=== PATIENT | female | born 1985 | race Caucasian/White ===

== ENCOUNTER → 2023-02-01 15:24 | Outpatient (BNVA) | payer BC, SELFPAY | PROVIDERS: Family Provider Family Medicine; PCP Family Medicine; Visit Provider Family Medicine | DX: M25.512 Pain in left shoulder (principal); F60.3 Borderline personality disorder; Z79.899 Other long term (current) drug therapy | CPT/HCPCS: 73030; 80053; 80061; 83036; 84443; 85025 ==

== ENCOUNTER 2023-10-15 14:15 | Inpatient (IN) | payer OTHER, SELFPAY ==
[2023-10-15] VITALS (77 sets, daily range): BP systolic 108–152; BP diastolic 65–93; PULSE 45–70; RESP 14–25; TEMP 36.8; O2SAT 95–100; BMI 31.3
--- NOTE | 2023-10-15 14:19 | ECG_ITS ---
[facility] Test Date: 2023-10-15 Pat Name: Cecile Youngblood Department: Room: Gender: Female Block Captain: : 1985 Requested By: Lashonda Jacobsen Order Number: [id number] Liu MD: Marlyn Turner M.D. Measurements Intervals [place] Rate: 51 P: 64 [place]: 126 QRS: 40 QRSD: 77 T: 3 QT: 431 QTc: 399 Interpretive Statements SINUS BRADYCARDIA LEFT ATRIAL ENLARGEMENT [-0.15mV P-WAVE IN V1/V2] NONSPECIFIC T-WAVE ABNORMALITY No previous ECG available for comparison Electronically Signed On 10-15-2023 19:03:44 CDT by Marlyn Turner M.D. [id number]
--- NOTE | 2023-10-15 14:20 | W.ED.OVERDOS ---
HPI - Overdose General: Chief Complaint: Overdose Stated Complaint: od/si Time Seen by Provider: 10/15/23 14:18 History of Present Illness: 38-year-old female with a history of depression who presents to the emergency room after taking an overdose of her hydroxyzine this morning. She took approximately 20 to 22 fifty mg hydralazine tablets. She says this was intended to end her life. Currently she is fairly symptom-free. She is has some mid epigastric stomach discomfort. She is mildly bradycardic. She is not requiring oxygen. She is not somnolent. No increased work of breathing. Review of Systems Narrative: Constitutional symptoms: Negative except as documented in HPI. Skin symptoms: Negative except as documented in HPI. Eye symptoms: Negative except as documented in HPI. ENMT symptoms: Negative except as documented in HPI. Respiratory symptoms: Negative except as documented in HPI. Cardiovascular symptoms: Negative except as documented in HPI. Gastrointestinal symptoms: Negative except as documented in HPI. Genitourinary symptoms: Negative except as documented in HPI. Musculoskeletal symptoms: Negative except as documented in HPI. Neurologic symptoms: Negative except as documented in HPI. Psychiatric symptoms: Negative except as documented in HPI. Endocrine symptoms: Negative except as documented in HPI. [facility], [facility] PFSH: Medical History Psychiatric care Physical Exam Narrative: EXAM NARRATIVE: General: Alert. no acute distress Skin: Warm, dry Head: Normocephalic, atraumatic. Neck: Supple, trachea midline. Eye: Extraocular movements are intact. Ears, nose, mouth and throat: Oral mucosa moist. Cardiovascular: Regular rate and rhythm, Normal peripheral perfusion. Respiratory: Lungs are clear to auscultation, respirations are non-labored, breath sounds are equal, Symmetrical chest wall expansion. Gastrointestinal: Soft, Nontender, Non distended, Normal bowel sounds. Musculoskeletal: Normal ROM, no deformity. Neurological: Alert and oriented to person, place, time, and situation, No focal neurological deficit observed. Psychiatric: Cooperative, depressed, expresses suicidal ideation. Course Vital Signs: Vital signs: Vital Signs Temperature 98.3 F 10/15/23 14:16 Pulse Rate 51 L 10/15/23 16:30 Respiratory Rate 24 H 10/15/23 16:30 Blood Pressure 125/74 10/15/23 16:30 Pulse Oximetry 98 10/15/23 16:30 Oxygen Delivery Me thod Room Air 10/15/23 14:16 MDM - Overdose Medical Decision Making Differential diagnosis: Patient with reported depression and suicidal ideation. concerns for infection, alcohol intoxication, cardiac issues or other medical problems prior to psychiatric admission. Workup: labwork, ekg ordered to evaluate the pathologies and to clear the patient medically prior to psychiatric admission Lab review: -Patient is not currently medically cleared. - EKG shows no ischemic changes. - Blood alcohol level is negative, as well as salicylate and Tylenol. - Drug screen is positive for marijuana - No signs of infection, urinalysis clear and white count is not elevated - No anemia. - BUN and creatinine are within normal limits. EKG: Time 1421 rate 51 sinus bradycardia, No ST-T changes, no ectopy, normal OR & QRS intervals, This was reviewed and interpreted by myself the ER physician at 1425 Consultation: Poison control was contacted. They recommend symptomatic treatment. They recommend at least a 20-hour observation as the half-life of hydroxyzine is 20 hours. Consultation: I spoke with hospitalist on-call who agrees with admission for observation until she is medically clear and able to be admitted to the psychiatric unit Assessment and plan: Depression Suicidal thoughts Medication overdose -Patient first needs admission to hospital for medical clearance and then admission to neuropsychiatric unit for continued evaluation and treatment of her psychiatric issues. - All lab work was reviewed and interpreted personally by myself, the ER physician - Evaluation and treatment of this problem were appropriate in the emergency setting Lab Data 10/15/23 15:05 10/15/23 15:05 Laboratory Results WBC 10.18 10^3/uL (3.29-11.43) 10/15/23 15:05 RBC 4.74 10^6/uL (3.85-5.65) 10/15/23 15:05 Hgb 13.80 g/dL (11.27-16.99) 10/15/23 15:05 Hct 40.0 % (36-47) 10/15/23 15:05 MCV 84.4 fl (85-98) L 10/15/23 15:05 MCH 29.1 pg (27-33) 10/15/23 15:05 MCHC 34.5 g/dL (30-55) 10/15/23 15:05 RDW 12.8 % (12.1-15.1) 10/15/23 15:05 Plt Count 195 10^3/cmm (157-399) 10/15/23 15:05 MPV 10.5 fL (7.4-10.4) H 10/15/23 15:05 Neut % (Auto) 82.7 % 10/15/23 15:05 Lymph % (Auto) 9.4 % 10/15/23 15:05 [place] % (Auto) 6.7 % 10/15/23 15:05 Eos % (Auto) 0.3 % 10/15/23 15:05 Baso % (Auto) 0.5 % 10/15/23 15:05 Neut # (Auto) 8.42 10^3/uL (1.8-7.7) H 10/15/23 15:05 Lymph # (Auto) 1.0 10^3/uL (0.8-4.8) 10/15/23 15:05 Knox # (Auto) 0.7 10^3/uL (0.2-0.9) 10/15/23 15:05 Eos # (Auto) 0.0 10^3/uL (0.0-0.8) 10/15/23 15:05 Baso # (Auto) 0.1 10^3/uL (0.0-0.1) 10/15/23 15:05 Nucleated RBC % (auto) 0 % 10/15/23 15:05 Nucleated RBCs # 0.0 /100WBC 10/15/23 15:05 Sodium 139 mmol/L (136-145) 10/15/23 15:05 Potassium 3.8 mmol/L (3.5-5.1) 10/15/23 15:05 Chloride 108 mmol/L (98-107) H 10/15/23 15:05 Carbon Dioxide 21 mmol/L (22-29) L 10/15/23 15:05 Anion Gap 13.8 (5-19) 10/15/23 15:05 BUN 13 mg/dL (6-20) 10/15/23 15:05 Creatinine 1.0 mg/dL (0.5-0.9) H 10/15/23 15:05 GFR Calculation 62.7 mL/min (90-130) L 10/15/23 15:05 Glucose 84 mg/dL (65-115) 10/15/23 15:05 Calculated Osmolality 287 mOsm/kg (285-295) 10/15/23 15:05 Calcium 8.7 mg/dL (8.5-10.5) 10/15/23 15:05 Total Bilirubin 0.4 mg/dL (0.15-1.2) 10/15/23 15:05 AST 15 U/L (0-32) 10/15/23 15:05 ALT 14 U/L (0-33) 10/15/23 15:05 Alkaline Phosphatase 73 U/L (35-105) 10/15/23 15:05 Total Protein 6.5 g/dL (6.6-8.7) L 10/15/23 15:05 Albumin 4.3 g/dL (3.5-5.2) 10/15/23 15:05 Globulin 2.2 g/dL (1.3-4.6) 10/15/23 15:05 TSH 2.17 uIU/mL (0.27-4.20) 10/15/23 15:05 HCG, Qual Negative (Negative) 10/15/23 14:34 Urine Color Yellow (Yellow) 10/15/23 14:34 Urine Appearance Slightly cloudy (CLEAR) 10/15/23 14:34 Urine pH 5 (5-7) 10/15/23 14:34 Ur Specific Patten 1.005 (1.005-1.030) 10/15/23 14:34 Urine Protein Neg (Negative) 10/15/23 14:34 Urine Glucose (UA) Norm (Normal) 10/15/23 14:34 Urine Ketones Negative (Negative) 10/15/23 14:34 Urine Blood Neg (Negative) 10/15/23 14:34 Urine Nitrate Negative (Negative) 10/15/23 14:34 Urine Bilirubin Neg (Negative) 10/15/23 14:34 Urine Urobilinogen Norm mg/dL (Negative) 10/15/23 14:34 Ur Leukocyte Esterase 1+ (Negative) H 10/15/23 14:34 Urine RBC None /hpf (0-2) 10/15/23 14:34 Urine WBC 5-10 /hpf (0-5) H 10/15/23 14:34 Ur Squamous Epith Cells 10-15 /hpf (0-5) H 10/15/23 14:34 Amorphous Sediment Not Reportable 10/15/23 14:34 Urine Bacteria 1+ /hpf (NONE) H 10/15/23 14:34 Urine Mucus 1+ /hpf 10/15/23 14:34 Salicylates < 0.3 mg/dL (3-10) L 10/15/23 15:05 Urine Opiates Screen Negative ng/mL (Negative) 10/15/23 14:34 Acetaminophen < 5.0 ug/mL (10-30) L 10/15/23 15:05 Ur Barbiturates Screen Negative ng/mL (Negative) 10/15/23 14:34 Ur Phencyclidine Scrn Negative ng/mL (Negative) 10/15/23 14:34 Ur Amphetamines Screen Negative ng/mL (Negative) 10/15/23 14:34 U Benzodiazepines Scrn Negative ng/mL (Negative) 10/15/23 14:34 Urine Cocaine Screen Negative ng/mL (Negative) 10/15/23 14:34 U Marijuana (THC) Screen Positive ng/mL (Negative) H 10/15/23 14:34 Ethyl Alcohol < 10 mg/dL (0-10) 10/15/23 15:05 No radiology studies performed this visit Discharge Plan Discharge Patient Disposition: Admitted As Inpatient Clinical Impression: Depression Drug overdose Qualifiers: Encounter type: initial encounter Injury intent: intentional self-harm Qualified Code(s): T50.902A - Poisoning by unspecified drugs, medicaments and biological substances, intentional self-harm, initial encounter Condition: Stable Coding Level of Care Code ED Diamond Die Polisher for Donya Schuster
[2023-10-15 14:59] LABS: Amphetamines Screen Urine Negative (Negative); Barbiturates Screen Urine Negative (Negative); Benzodiazepines Screen Urine Negative (Negative); Cocaine Screen Urine Negative (Negative); Opiate Screen Urine Negative (Negative); PCP Screen Urine Negative (Negative); THC Screen Urine Positive (Negative)
[2023-10-15 15:13] LABS: Basophils # 0.1 10^3/uL (0.0-0.1); Basophils % 0.5 %; Eosinophils % 0.3 %; Lymphocytes % 9.4 %; Mean Corpuscular HGB Conc 34.5 g/dL (30-55); Mean Corpuscular Hemoglobin 29.1 pg (27-33); Mean Corpuscular Volume 84.4 fl (85-98); Mean Platelet Volume 10.5 fL (7.4-10.4); Monocytes # 0.7 10^3/uL (0.2-0.9); Monocytes % 6.7 %; Neutrophils # 8.42 10^3/uL (1.8-7.7); Neutrophils % 82.7 %; Nucleated Red Blood Cells % 0 %; Platelet Count 195 10^3/cmm (157-399); Red Blood Count 4.74 10^6/uL (3.85-5.65); Red Cell Distribution Width 12.8 % (12.1-15.1); White Blood Count 10.18 10^3/uL (3.29-11.43)
[2023-10-15 15:19] LABS: HCG Qualitative Urine. Negative (Negative)
[2023-10-15 15:36] LABS: Bacteria Urine 1+ /hpf; Bilirubin Urine Neg (Negative); Blood Urine Neg (Negative); Glucose Urine UA Norm (Normal); Ketones Urine Negative (Negative); Leukocyte Esterase Urine 1+ (Negative); Mucus Urine 1+ /hpf; Nitrate Urine Negative (Negative); Protein Urine Neg (Negative); Specific Gravity, Urine 1.005 (1.005-1.030); Urine Appearance Slightly Cloudy (CLEAR); Urine Color Yellow (Yellow); Urobilinogen Urine Norm (Negative); pH Urine 5 (5-7)
[2023-10-15 15:37] LABS: Add Urine Culture? No
[2023-10-15 15:40] LABS: Alanine Aminotransferase 14 U/L (0-33); Albumin Level 4.3 g/dL (3.5-5.2); Alkaline Phosphatase 73 U/L (35-105); Anion Gap 13.8 (5-19); Aspartate Amino Transferase 15 U/L (0-32); Blood Urea Nitrogen 13 mg/dL (6-20); Calcium 8.7 mg/dL (8.5-10.5); Carbon Dioxide 21 mmol/L (22-29); Chloride 108 mmol/L (98-107); Creatinine Clr Calc Pharmacy 78.0307; Globulin 2.2 g/dL (1.3-4.6); Glomerular Filtration Rate 62.7 mL/min (90-130); Glucose 84 mg/dL (65-115); Osmolality Calculated 287 mOsm/kg (285-295); Potassium 3.8 mmol/L (3.5-5.1); Sodium 139 mmol/L (136-145); Thyroid Stimulating Hormone 2.17 uIU/mL (0.27-4.20); Total Bilirubin 0.4 mg/dL (0.15-1.2); Total Protein 6.5 g/dL (6.6-8.7)
[2023-10-15 15:41] LABS: Acetaminophen < 5.0 ug/mL (10-30); Alcohol Level < 10 mg/dL (0-10); Salicylate < 0.3 mg/dL (3-10)
--- NOTE | 2023-10-15 18:06 | P.HP_ITS ---
Providers/Chief Complaint 2 Admitting Physician: Fernanda Garibay MD Primary Care Provider: Robel Whitney MD Chief Complaint: od/si History of Present Illness Cecile Youngblood is a 38 year old female with history of depression on hydroxyzine, Zoloft, Abilify was brought in by EMS for altered mental status. On arrival to ER she was awake and reported she took 20 to 22 pills of hydroxyzine this morning and was drowsy. Her ankle called for the EMS and she was brought to ER. In ER she was found to be hemodynamically stable. On my evaluation, she complained of feeling nauseous, and endorses that she overdose due to depression. She further states she has had overdosing incidents in the past. She denies any history of fever, cold, cough, chest pain, vomiting, urinary or bowel complaints. She does not work currently and lives with her uncle. Last PCP visit was 03/29 for right rotator cuff injury. EKG shows no ischemic changes. - Blood alcohol level is negative, as well as salicylate and Tylenol. - Drug screen is positive for marijuana - No signs of infection, urinalysis clear and white count is not elevated - No anemia. - BUN and creatinine are within normal limits. EKG: Time 1421 rate 51 sinus bradycardia, No ST-T changes, no ectopy, normal NC & QRS intervals, This was reviewed and interpreted by myself the ER physician at 1425 Consultation done in ER: Poison control was contacted. They recommend symptomatic treatment. They recommend at least a 20-hour observation as the half-life of hydroxyzine is 20 hours. Review of Systems 2 General: Reports: 10 or more systems reviewed and unremarkable except in HPI and below Medications/Allergies Home Medications Medication Instructions Recorded Confirmed Last Taken Type aripiprazole 15 mg tablet (Abilify) 15 mg PO DAILY #30 tabs 09/17/23 10/04/23 Unknown Rx hydroxyzine HCl 50 mg tablet 100 mg (2 x 50 mg) PO .HS PRN 09/17/23 10/04/23 Unknown Rx insomnia #60 tabs sertraline 100 mg tablet (Zoloft) 200 mg (2 x 100 mg) PO DAILY #60 10/04/23 10/04/23 Unknown Rx tabs Allergies Allergy/AdvReac Type Severity Reaction Status Date / Time clomipramine AdvReac Intermediate Tiredness Verified 10/04/23 15:01 & constipation. PFSH Acute 2 PFSH: Medical History Psychiatric care Vitals/I&O/Wt Last Vital Signs Temp 98.3 F 10/15/23 14:16 Pulse 52 L 10/15/23 17:30 Resp 24 H 10/15/23 17:30 BP 121/72 10/15/23 17:30 Pulse Ox 97 10/15/23 17:30 O2 Del Method Room Air 10/15/23 14:16 Weight last 48 hrs Weight 80.286 kg Physical Exam 2 Narrative: She is alert awake oriented x 3, answering questions appropriately but seems depressed. She was positive for depression screening Chest clear to auscultation bilaterally. Cardiovascular normal heart sounds. Abdomen soft nontender nondistended normal bowel sounds. Extremities no edema noted bilateral lower extremities. Data 10/15/23 15:05 10/15/23 15:05 A&P Assessment and plan (1) Drug overdose: Qualifiers: Encounter type: initial encounter Injury intent: intentional self-harm Qualified Code(s): T50.902A - Poisoning by unspecified drugs, medicaments and biological substances, intentional self-harm, initial encounter (2) Depression: Plan 38 year old female with history of depression on hydroxyzine, Zoloft, Abilify was brought in by EMS for altered mental status and has a history of overdose of hydroxyzine with 20 to 22 pills this morning. Drug overdose-likely secondary to depression Needs psych consult in a.m. Admit to CSU with continuous telemetry monitoring Monitor electrolytes IV fluids normal saline at 80 cc/h IV Pepcid 20 mg twice daily IV Zofran 4 mg every 8 hours as needed. Hold home medications for now DVT prophylaxis with SCD Regular diet She is full code for now. Attestations 2 Medical Necessity Statement*: She needs hospitalization not crossing 2 midnights for management of drug overdose with IV fluids and telemetry monitoring, needs psychiatry consult for major depressive disorder Time Spent in Patient Care: 30 minutes Coding Level of Care Code Acute Code for [facility] Fwd Diagnoses Drug overdose T50.902A Encounter type: initial encounter Injury intent: intentional self-harm Depression F32.A Time Spent (min) 30
[2023-10-15] MEDS: sodium chloride 0.9% 1,000 ML 80 ML IV (18:30)
[2023-10-15] MEDS: famotidine 20 mg/2 mL INJ IVP (18:34)
[2023-10-15] MEDS: nicotine 14 mg Patch 1 PATCH TRANSDERMA (22:26)
--- NOTE | 2023-10-15 23:36 | PC.NURSE ---
Poison Control called at 1999 for an update on Pt's status. Pt is stable and vitals stable besides being bradycardic which Poison control believes is a baseline for the pt and not symptomatic for OD.
[2023-10-16] VITALS (30 sets, daily range): BP systolic 104–175; BP diastolic 59–135; PULSE 41–66; RESP 14–32; TEMP 36.8–37.1; O2SAT 92–98; BMI 30.7
--- NOTE | 2023-10-16 01:40 | PC.NURSE ---
Patient states lives with uncle.
[2023-10-16 05:33] LABS: Basophils % 0.4 %; Eosinophils # 0.2 10^3/uL (0.0-0.8); Eosinophils % 2.1 %; Hematocrit 37.6 % (36-47); Lymphocytes # 1.9 10^3/uL (0.8-4.8); Lymphocytes % 26.6 %; Mean Corpuscular HGB Conc 33.8 g/dL (30-55); Mean Corpuscular Hemoglobin 28.7 pg (27-33); Mean Corpuscular Volume 84.9 fl (85-98); Monocytes # 0.6 10^3/uL (0.2-0.9); Monocytes % 9.2 %; Neutrophils # 4.28 10^3/uL (1.8-7.7); Neutrophils % 61.4 %; Nucleated Red Blood Cells % 0 %; Platelet Count 185 10^3/cmm (157-399); Red Blood Count 4.43 10^6/uL (3.85-5.65); Red Cell Distribution Width 12.8 % (12.1-15.1); White Blood Count 6.98 10^3/uL (3.29-11.43)
[2023-10-16 06:05] LABS: Alanine Aminotransferase 12 U/L (0-33); Albumin Level 3.9 g/dL (3.5-5.2); Alkaline Phosphatase 67 U/L (35-105); Anion Gap 12.2 (5-19); Aspartate Amino Transferase 13 U/L (0-32); Blood Urea Nitrogen 13 mg/dL (6-20); Calcium 8.3 mg/dL (8.5-10.5); Carbon Dioxide 22 mmol/L (22-29); Chloride 109 mmol/L (98-107); Creatinine Clr Calc Pharmacy 96.4419; Globulin 1.9 g/dL (1.3-4.6); Glomerular Filtration Rate 81.2 mL/min (90-130); Glucose 87 mg/dL (65-115); Osmolality Calculated 287 mOsm/kg (285-295); Potassium 4.2 mmol/L (3.5-5.1); Sodium 139 mmol/L (136-145); Total Bilirubin 0.5 mg/dL (0.15-1.2); Total Protein 5.8 g/dL (6.6-8.7)
[2023-10-16] MEDS: famotidine 20 mg/2 mL INJ IVP (07:39)
[2023-10-16] MEDS: sodium chloride 0.9% 1,000 ML 80 ML IV (07:40)
[2023-10-16] MEDS: nicotine 14 mg Patch 1 PATCH TRANSDERMA (07:58)
--- NOTE | 2023-10-16 10:29 | PC.CHAP ---
Pastoral Care Encounter/Spiritual Assessment Type of Contact [] Declined oyster preparer visit [] Patient/Family/Request visit [] Outpatient visit [] Follow-up visit [] Physician referral [] Code/Alert [x] Routine visit [] Staff referral [] Actively dying [] Patient sleeping [] Family support [] [] Out of room [] Palliative care [] [] Receiving care in room [] Pre-surgical visit [] Trauma [] Long length of stay [x] ICU visit [x] Other: sitter Relational/Emotional Strength [] Patient feels connected with others/family/visitors/staff [] Distress [] Loneliness/isolation [] Abandonment Spirituality of Patient [] Person of Brandi [] Attends Denominational of their Brandi [] Believes in Prayer [] Reads Bible or Hoahaoism materials [] There are Spiritual issues to be addressed Terminal Operator Interventions [x] Prayer [] Active listening [] Non-anxious presence [] Spiritual/emotional support [] Crisis/trauma care [] Spiritual counseling [] Bereavement support [] Provided bereavement packet [] Provided Bible/devotional materials [] Provided toy/stuffed animal, coloring book to patient or family member [] Provided Communion [] Anointing/[place] [] Salvation [] Completed spiritual assessment [] Other: Impact on Illness or Injury [] Angry [] Fearful [] Anxious [] Often cries [] Exhaustion [] Unable to work [] Unable to attend denominational [] Unable to walk/stand [] Unable to read [] Unable to drive [] Unable to eat/drink [] Unable to sleep [] Unable to be with family [] Patient intubated [] Other: Summary prayed and assure patient she is worth so very much... as a person and a child of God.... Time spent with patient
--- NOTE | 2023-10-16 10:52 | P.PN_ITS ---
Subjective 2 Subjective: No acute overnight events noted, denies any nausea?vomiting. Vitals/I&O/Wt Last Vital Signs Temp 98.2 F 10/16/23 04:00 Pulse 50 L 10/16/23 08:00 Resp 20 H 10/16/23 08:00 BP 115/68 10/16/23 08:00 Pulse Ox 97 10/16/23 08:00 O2 Del Method Room Air 10/16/23 08:00 10/15/23 10/16/23 10/16/23 22:59 06:59 14:59 Intake Total 0 / 0 1000 / 1000 Output Total 200 / 200 Balance -200 / -200 0 / -200 1000 / 1000 Weight last 48 hrs Weight 78.5 kg Weight 78.5 kg Weight 80.286 kg Physical Exam 2 Narrative: She is alert awake oriented x 3, answering questions appropriately but seems depressed. She was positive for depression screening Chest clear to auscultation bilaterally. Cardiovascular normal heart sounds. Abdomen soft nontender nondistended normal bowel sounds. Extremities no edema noted bilateral lower extremities. Data 10/16/23 04:34 10/16/23 04:34 A&P Assessment and plan (1) Drug overdose: Qualifiers: Encounter type: initial encounter Injury intent: intentional self-harm Qualified Code(s): T50.902A - Poisoning by unspecified drugs, medicaments and biological substances, intentional self-harm, initial encounter (2) Depression: Plan 38 year old female with history of depression on hydroxyzine, Zoloft, Abilify was brought in by EMS for altered mental status and has a history of overdose of hydroxyzine with 20 to 22 pills this morning. Drug overdose-likely secondary to depression Waiting for Psychiatry consult Admit to CSU with continuous telemetry monitoring Monitor electrolytes, normal for now, no major derrangements seen. IV fluids normal saline at 80 cc/h IV Pepcid 20 mg twice daily IV Zofran 4 mg every 8 hours as needed. Hold home medications for now DVT prophylaxis with SCD Regular diet She is full code for now. Attestations 2 Medical Necessity Statement*: She needs hospitalization not crossing 2 midnights for management of drug overdose with IV fluids and telemetry monitoring, needs psychiatry consult for major depressive disorder Time Spent in Patient Care: 10 minutes Coding Level of Care Code Acute Code for [facility] Fwd Diagnoses Drug overdose T50.902A Encounter type: initial encounter Injury intent: intentional self-harm Depression F32.A Time Spent (min) 10
--- NOTE | 2023-10-16 12:39 | P.TS_ITS ---
Transfer Summary Providers Date of Admission: 10/15/23 17:58 Date of Discharge/Transfer: 10/16/23 Attending Provider at Admission: Fernanda Garibay MD Attending Provider at Transfer: Fernanda Garibay MD Primary Care Provider: Robel Whitney MD Transfer Plans: Anticipated date of transfer: 10/16/23 . Receiving Facility: [facility] . Receiving Provider: Dr Herbie Flores . Diagnoses at Discharge Discharge Diagnosis (1) Drug overdose: Status: Acute Qualifiers: Encounter type: initial encounter Injury intent: intentional self-harm Qualified Code(s): T50.902A - Poisoning by unspecified drugs, medicaments and biological substances, intentional self-harm, initial encounter (2) Depression: Status: Acute Reason for Visit Reason for Visit od/si Brief History: Cecile Youngblood is a 38 year old female with history of depression on hydroxyzine, Zoloft, Abilify was brought in by EMS for altered mental status. On arrival to ER she was awake and reported she took 20 to 22 pills of hydroxyzine this morning and was drowsy. Her ankle called for the EMS and she was brought to ER. In ER she was found to be hemodynamically stable. On my evaluation, she complained of feeling nauseous, and endorses that she overdose due to depression. She further states she has had overdosing incidents in the past. She denies any history of fever, cold, cough, chest pain, vomiting, urinary or bowel complaints. She does not work currently and lives with her uncle. Last PCP visit was 03/29 for right rotator cuff injury. EKG shows no ischemic changes. - Blood alcohol level is negative, as well as salicylate and Tylenol. - Drug screen is positive for marijuana - No signs of infection, urinalysis clear and white count is not elevated - No anemia. - BUN and creatinine are within normal limits. EKG: Time 1421 rate 51 sinus bradycardia, No ST-T changes, no ectopy, normal ID & QRS intervals, This was reviewed and interpreted by myself the ER physician at 1425 Consultation done in ER: Poison control was contacted. They recommend symptomatic treatment. They recommend at least a 20-hour observation as the half-life of hydroxyzine is 20 hours. Hospital Course Hospital Course As per poison control she was monitored in ICU for any withdrawal symptoms. She was on continuous telemetry monitoring. She denied any complaint of vomiting or abdominal pain at that time although she felt mildly nauseous. Her labs were normal and had no electrolyte imbalances. She is afebrile and hemodynamically stable to be transferred to psych for further management of major depressive disorder with suicidal ideation. Physical Exam Narrative: She is alert awake oriented x 3, answering questions appropriately but seems depressed. She was positive for depression screening Chest clear to auscultation bilaterally. Cardiovascular normal heart sounds. Abdomen soft nontender nondistended normal bowel sounds. Extremities no edema noted bilateral lower extremities. TS Data Studies Completed and Pending Laboratory Last Values WBC 6.98 10^3/uL (3.29-11.43) 10/16/23 04:34 RBC 4.43 10^6/uL (3.85-5.65) 10/16/23 04:34 Hgb 12.70 g/dL (11.27-16.99) 10/16/23 04:34 Hct 37.6 % (36-47) 10/16/23 04:34 MCV 84.9 fl (85-98) L 10/16/23 04:34 MCH 28.7 pg (27-33) 10/16/23 04:34 MCHC 33.8 g/dL (30-55) 10/16/23 04:34 RDW 12.8 % (12.1-15.1) 10/16/23 04:34 Plt Count 185 10^3/cmm (157-399) 10/16/23 04:34 MPV 11.0 fL (7.4-10.4) H 10/16/23 04:34 Neut % (Auto) 61.4 % 10/16/23 04:34 Lymph % (Auto) 26.6 % 10/16/23 04:34 [place] % (Auto) 9.2 % 10/16/23 04:34 Eos % (Auto) 2.1 % 10/16/23 04:34 Baso % (Auto) 0.4 % 10/16/23 04:34 Neut # (Auto) 4.28 10^3/uL (1.8-7.7) 10/16/23 04:34 Lymph # (Auto) 1.9 10^3/uL (0.8-4.8) 10/16/23 04:34 [place] # (Auto) 0.6 10^3/uL (0.2-0.9) 10/16/23 04:34 Eos # (Auto) 0.2 10^3/uL (0.0-0.8) 10/16/23 04:34 Baso # (Auto) 0.0 10^3/uL (0.0-0.1) 10/16/23 04:34 Nucleated RBC % (auto) 0 % 10/16/23 04:34 Nucleated RBCs # 0.0 /100WBC 10/16/23 04:34 Sodium 139 mmol/L (136-145) 10/16/23 04:34 Potassium 4.2 mmol/L (3.5-5.1) 10/16/23 04:34 Chloride 109 mmol/L (98-107) H 10/16/23 04:34 Carbon Dioxide 22 mmol/L (22-29) 10/16/23 04:34 Anion Gap 12.2 (5-19) 10/16/23 04:34 BUN 13 mg/dL (6-20) 10/16/23 04:34 Creatinine 0.8 mg/dL (0.5-0.9) 10/16/23 04:34 GFR Calculation 81.2 mL/min (90-130) L 10/16/23 04:34 Glucose 87 mg/dL (65-115) 10/16/23 04:34 Calculated Osmolality 287 mOsm/kg (285-295) 10/16/23 04:34 Calcium 8.3 mg/dL (8.5-10.5) L 10/16/23 04:34 Magnesium 2.0 mg/dL (1.7-2.3) 10/16/23 04:34 Total Bilirubin 0.5 mg/dL (0.15-1.2) 10/16/23 04:34 AST 13 U/L (0-32) 10/16/23 04:34 ALT 12 U/L (0-33) 10/16/23 04:34 Alkaline Phosphatase 67 U/L (35-105) 10/16/23 04:34 Total Protein 5.8 g/dL (6.6-8.7) L 10/16/23 04:34 Albumin 3.9 g/dL (3.5-5.2) 10/16/23 04:34 Globulin 1.9 g/dL (1.3-4.6) 10/16/23 04:34 TSH 2.70 uIU/mL (0.27-4.20) 10/16/23 04:34 HCG, Qual Negative (Negative) 10/15/23 14:34 Urine Color Yellow (Yellow) 10/15/23 14:34 Urine Appearance Slightly cloudy (CLEAR) 10/15/23 14:34 Urine pH 5 (5-7) 10/15/23 14:34 Ur Specific [place] 1.005 (1.005-1.030) 10/15/23 14:34 Urine Protein Neg (Negative) 10/15/23 14:34 Urine Glucose (UA) Norm (Normal) 10/15/23 14:34 Urine Ketones Negative (Negative) 10/15/23 14:34 Urine Blood Neg (Negative) 10/15/23 14:34 Urine Nitrate Negative (Negative) 10/15/23 14:34 Urine Bilirubin Neg (Negative) 10/15/23 14:34 Urine Urobilinogen Norm mg/dL (Negative) 10/15/23 14:34 Ur Leukocyte Esterase 1+ (Negative) H 10/15/23 14:34 Urine RBC None /hpf (0-2) 10/15/23 14:34 Urine WBC 5-10 /hpf (0-5) H 10/15/23 14:34 Ur Squamous Epith Cells 10-15 /hpf (0-5) H 10/15/23 14:34 Amorphous Sediment Not Reportable 10/15/23 14:34 Urine Bacteria 1+ /hpf (NONE) H 10/15/23 14:34 Urine Mucus 1+ /hpf 10/15/23 14:34 Salicylates < 0.3 mg/dL (3-10) L 10/15/23 15:05 Urine Opiates Screen Negative ng/mL (Negative) 10/15/23 14:34 Acetaminophen < 5.0 ug/mL (10-30) L 10/15/23 15:05 Ur Barbiturates Screen Negative ng/mL (Negative) 10/15/23 14:34 Ur Phencyclidine Scrn Negative ng/mL (Negative) 10/15/23 14:34 Ur Amphetamines Screen Negative ng/mL (Negative) 10/15/23 14:34 U Benzodiazepines Scrn Negative ng/mL (Negative) 10/15/23 14:34 Urine Cocaine Screen Negative ng/mL (Negative) 10/15/23 14:34 U Marijuana (THC) Screen Positive ng/mL (Negative) H 10/15/23 14:34 Ethyl Alcohol < 10 mg/dL (0-10) 10/15/23 15:05 Recent Clincial Data Last Vital Signs Temp 98.2 F 10/16/23 04:00 Pulse 58 L 10/16/23 12:00 Resp 19 H 10/16/23 12:00 BP 115/65 10/16/23 12:00 Pulse Ox 97 10/16/23 12:00 O2 Del Method Room Air 10/16/23 12:00 Vital Signs Temp Pulse Resp BP Pulse Ox O2 Del Method 10/16/23 12:00 58 L 19 H 115/65 97 Room Air 10/16/23 11:00 66 18 175/135 92 Room Air 10/16/23 10:00 62 29 H 130/73 97 Room Air 10/16/23 09:00 65 18 108/71 97 Room Air 10/16/23 08:00 50 L 20 H 115/68 97 Room Air 10/16/23 07:00 54 L 15 106/68 97 10/16/23 06:00 50 L 27 H 119/71 97 10/16/23 05:00 54 L 21 H 104/59 98 10/16/23 04:00 98.2 F 57 L 19 H 110/68 97 Room Air 10/16/23 03:00 51 L 17 108/62 97 10/16/23 02:00 51 L 17 111/59 96 10/16/23 01:20 41 L 17 112/70 96 10/16/23 01:15 61 18 112/69 97 10/16/23 01:10 108/71 10/16/23 01:05 53 L 32 H 112/69 96 10/16/23 01:00 50 L 22 H 118/70 97 10/16/23 00:55 108/71 10/16/23 00:50 49 L 22 H 118/70 97 10/16/23 00:45 46 L 25 H 110/72 97 10/16/23 00:40 47 L 22 H 110/72 96 Intake & Output/Weight 10/14/23 10/15/23 10/16/23 10/17/23 06:59 06:59 06:59 06:59 Intake Total 0 / 0 1360 / 1360 Output Total 200 / 200 Balance -200 / -200 1360 / 1360 Weight 78.5 kg Vitals Last Vital Signs Temp 98.2 F 10/16/23 04:00 Pulse 58 L 10/16/23 12:00 Resp 19 H 10/16/23 12:00 BP 115/65 10/16/23 12:00 Pulse Ox 97 10/16/23 12:00 O2 Del Method Room Air 10/16/23 12:00 TS Medications Medications Nicotine (Nicotine 14 Mg Patch) 1 patch TRANSDERMA DAILY [facility] Last Admin: 10/16/23 07:58 Dose: 1 patch Discontinued Medications Famotidine (Famotidine 20 Mg/2 Ml Inj) 20 mg IVP Q12H [facility] Last Admin: 10/16/23 07:39 Dose: 20 mg Sodium Chloride (Sodium Chloride 0.9%) 1,000 mls @ 80 mls/hr IV .[id number] [facility] Last Admin: 10/16/23 07:40 Dose: 80 mls/hr Ondansetron HCl (Ondansetron 2 Mg/Ml Sdv 2 Ml) 4 mg IVP Q8H PRN PRN Reason: vomiting, or N/V if npo Allergies clomipramine Adverse Reaction (Intermediate, Verified 10/04/23 15:01) Tiredness & constipation. Home Medications aripiprazole 15 mg tablet (Abilify) 15 mg PO DAILY #30 tabs 09/17/23 [Rx Confirmed 10/16/23] hydroxyzine HCl 50 mg tablet 100 mg (2 x 50 mg) PO .HS PRN insomnia #60 tabs 09/17/23 [Rx Confirmed 10/16/23] sertraline 100 mg tablet (Zoloft) 200 mg (2 x 100 mg) PO DAILY #60 tabs 10/04/23 [Rx Confirmed 10/16/23] Discharge Plan Discharge Patient Disposition: Xfer Psychiatric Hosp Condition: Stable Prescriptions: No Action hydroxyzine HCl 50 mg tablet 100 mg PO .HS PRN (Reason: insomnia) Qty: 60 2RF aripiprazole [Abilify] 15 mg tablet 15 mg PO DAILY Qty: 30 2RF sertraline [Zoloft] 100 mg tablet 200 mg PO DAILY Qty: 60 2RF Discharge Orders: Discharge Order (Routine); Ordered 10/16/23 Ordered By: Fernanda Garibay Referrals: Robel Whitney MD [Primary Care Provider] - Discharge Diet: Regular Discharge Activity: Resume usual activity Patient Instructions: Opioid Safety Transfer Attestations Time Spent in Transfer Care: less than 30 min Quality Metrics Clinical Quality Measures [ No reported AMI, CVA or VTE this stay] Coding Level of Care Code Acute Code for Chg Fwd Diagnoses Drug overdose T50.902A Encounter type: initial encounter Injury intent: intentional self-harm Depression F32.A Time Spent (min) 15
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
[2023-10-16] MEDS: sertraline 50 mg Tablet PO (16:54)
[2023-10-16] MEDS: ARIPiprazole 30 mg Tablet 15 MG PO (17:02)
--- NOTE | 2023-10-16 18:36 | PC.NURSE ---
Report called to NPU CARLOZ courtney. Patient and belongings taken to NPU.
[2023-10-16] MEDS: nicotine 2 mg Gum BUCCAL (20:53)
[2023-10-17] MEDS: nicotine 2 mg Gum BUCCAL (01:09)
[2023-10-17] MEDS: trazodone 50 mg Tablet PO (01:09)
[2023-10-17 06:00] VITALS: BP 106/72; PULSE 57; RESP 20; TEMP 36.6; O2SAT 97
[2023-10-17] MEDS: nicotine 4 mg lozenge MUCOUS MEM ×6 (07:35→20:47)
[2023-10-17] MEDS: sertraline 50 mg Tablet PO (08:07)
[2023-10-17] MEDS: ARIPiprazole 30 mg Tablet 15 MG PO (08:07)
[2023-10-17] MEDS: duloxetine 30 mg Capsule PO ×2 (08:08→08:09)
--- NOTE | 2023-10-17 13:27 | P.NPUPN_ITS ---
Subjective NPU 2 Subjective: 38-year-old female admitted with suicida l ideation after an overdose on hydroxyzine. She had reported a long history of borderline personality traits and depression. She had reported having endured an adequate trial of Zoloft for several months without any improvement along with the addition of Abilify. She had requested a change in her medications to target both depression and anxiety. She had reported having chronic mood dysregulation and and chronic suicidal thoughts. She had endorsed low self-esteem and reported that she was excessively critical of herself while endorsing feelings of hopelessness and guilt. She had continued to isolate herself on the milieu. She had appeared excessively tired. She had reported having difficulties with falling asleep with frequent nightmares from her previous trauma. Patient had reported sleep continuity disruption. She endorsed that she was trying to continue with psychotherapy and reported no history of group therapy. Mental Status Exam 2 MSE Comments: Patient is a casually dressed 38-year-old who was seen lying bed appearing her stated age. She was awake and alert and oriented to person place time and situation. She was pleasant and cooperative on interview. There was no evidence of any abnormal involuntary motor movements appreciated. There was evidence of moderate psychomotor retardation. Her speech was normal in regards to rate rhythm and prosody. Her mood was described as frustrated. Her affect appeared restricted in range and mood congruent. Her thought process was linear, logical, and goal-directed. Her thought content showed evidence of suicidal ideation with acknowledgment of having overdosed. She denied any homicidal ideation. She did not appear to be responding to internal stimuli. There was no clear evidence of delusional thinking. Her attention span appeared fair. Her recent and remote memory were grossly intact. her insight was poor. Her judgment was poor. Her impulse control appeared poor. Vitals/I&O/Wt Last Vital Signs Temp 97.8 F 10/17/23 06:00 Pulse 57 L 10/17/23 06:00 Resp 20 H 10/17/23 06:00 BP 106/72 10/17/23 06:00 Pulse Ox 97 10/17/23 06:00 O2 Del Method Room Air 10/17/23 06:00 10/16/23 10/17/23 10/17/23 22:59 06:59 14:59 Intake Total 440 / 2566.667 Balance 440 / 2566.667 Weight last 48 hrs Weight 78.5 kg Weight 78.5 kg Weight 80.286 kg Data NPU 10/16/23 04:34 10/16/23 04:34 A&P Assessment and plan (1) Major depressive disorder, recurrent severe without psychotic features: (2) Post-traumatic stress disorder, chronic: (3) Borderline personality disorder: (4) Generalized anxiety disorder: (5) Cannabis use disorder, severe, dependence: Plan 38-year-old female admitted after an overdose on hydroxyzine with a history of major depressive disorder and borderline personality disorder. The patient would benefit from acute inpatient psychiatric hospitalization. Patient was agreeable to changes with medication regimen as well. #1. ?Engage patient in individual milieu and group therapy. #2?? Recommend sober living treatment at the highest level of care to which the patient is willing to commit #3??? Continue Cymbalta 30mg daily with plan for increase while continuing zoloft 50mg to avoid SSRI discontinuation syndrome. Reduce abilify to 5mg x3 days then discontinue. Add seroquel 50mg at night to target PTSD and MDD symptoms. #4?? TO-15 minute checks? #5?? Will attempt to gather collateral information- Patient would benefit from DBT therapy. Involuntary Hold Information 2 96 Hour Hold: 96 Hour Involuntary Admission: No Attestations NPU 2 Medical Necessity Statement*: Inpatient hospitalization is medically necessary and deemed to ?be ?the clinically appropriate intervention ?at this time.? We will monitor/initiate medications and make changes as indicated.? ? The patient?s likely length of stay 5-7 days. Coding Level of Care Code Acute Code for g Fwd Diagnoses Major depressive disorder, recurrent severe without psychotic features F33.2 Post-traumatic stress disorder, chronic F43.12 Borderline personality disorder F60.3 Generalized anxiety disorder F41.1 Cannabis use disorder, severe, dependence F12.20
[2023-10-17 14:00] VITALS: BP 120/78; PULSE 76; RESP 18; TEMP 37.2; O2SAT 97
[2023-10-17 20:17] VITALS: BP 107/68; PULSE 56; RESP 16; TEMP 36.4; O2SAT 95
[2023-10-17] MEDS: quetiapine 25 mg Tablet 50 MG PO ×2 (20:47)
[2023-10-18 06:00] VITALS: BP 107/68; PULSE 56; RESP 16; TEMP 36.8; O2SAT 96
[2023-10-18] MEDS: nicotine 4 mg lozenge MUCOUS MEM ×5 (06:51→20:47)
[2023-10-18] MEDS: sertraline 50 mg Tablet PO (07:47)
[2023-10-18] MEDS: ARIPiprazole 10 mg Tablet 5 MG PO (07:47)
[2023-10-18] MEDS: OLANZapine 5 mg ODT PO (07:48)
--- NOTE | 2023-10-18 09:12 | PC.NURSE ---
PT CURRENTLY DENIES HI/VH AT THIS TIME. PT ENDORSES SI STATING THAT SHE WOULD ATTEMPT TO OVERDOSE AGAIN IF SHE WAS STILL WITHOUT A PLACE TO GO. PT CURRENTLY DENIES ANY PLAN WHILE IN THE HOSPITAL AND HAS VERBALIZED AGREEMENT TO COME TO STAFF IF SHE WORSENS OR THINKS OF A PLAN. PT CURRENTLY ENDORSES AUDITORY HALLUCINATIONS STATING THAT SHE HEARS A ROOM FULL OF PEOPLE. THEY FILL MY HEAD WITH GARBAGE. PT CURRENTLY ENDORSES DEPRESSION AND ANXIETY RATING BOTH A 10/10 ON A 0-10 SCALE WHERE 0 IS NONE AND 10 IS THE WORST POSSIBLE. PT REQUESTED SOMETHING FOR ANXIETY. THIS NURSE ADMINISTERED OLANZAPINE 5 MG SUBLINGUAL TO ALLEVIATE THE VOICES AND ANXIETY. PT WAS COOPERATIVE WITH ASSESSMENT AND MEDICATIONS.
[2023-10-18] MEDS: duloxetine 30 mg Capsule PO (09:13)
[2023-10-18] MEDS: hyDROXYzine 25 mg Capsule 50 MG PO (11:20)
--- NOTE | 2023-10-18 13:37 | P.NPUPN_ITS ---
Subjective NPU 2 Subjective: Patient presented today reporting that things are going okay. She reports that she is feeling a little more optimistic because she was able to get a hold of her aunt who had promised she would get in touch with her father and uncle who and this makes her optimistic that she will be without family supports. She acknowledges that she needed to be in the hospital and she agrees with the recommendation that she get CBT/DBT as part of her outpatient services and reports she is tolerating the cross titration of Cymbalta and Zoloft as well as Seroquel and Abilify and she denied any side effects. Mental Status Exam 2 MSE Comments: This is an overweight versus obese white female in hospital scrubs with limited grooming and adequate eye contact. No abnormal movements except for mild psychomotor retardation. Cooperative with exam in mild distress. Her speech was slightly decreased rate and volume. Her mood was described as a little more optimistic. Her affect appeared restricted in range and mood congruent. Her thought process was linear, logical, and goal-directed. Her thought content: Patient denied suicidal or homicidal ideation. There were no delusions reported or noted, she denied auditory or visual hallucinations and she did not appear to be responding to internal stimuli. Her attention and concentration appeared fair and her recent and remote memory were grossly intact but none were formally tested. She was alert and oriented x 3. Insight and judgment were limited but improving and her impulse control appeared poor. Vitals/I&O/Wt Last Vital Signs Temp 98.2 F 10/18/23 06:00 Pulse 56 L 10/18/23 06:00 Resp 16 10/18/23 06:00 BP 107/68 10/18/23 06:00 Pulse Ox 96 10/18/23 06:00 O2 Del Method Room Air 10/18/23 06:00 10/17/23 10/18/23 10/18/23 22:59 06:59 14:59 Intake Total 440 / 440 Output Total 200 / 200 Balance 240 / 240 Data NPU 10/16/23 04:34 10/16/23 04:34 A&P Assessment and plan (1) Major depressive disorder, recurrent severe without psychotic features: (2) Post-traumatic stress disorder, chronic: (3) Borderline personality disorder: (4) Generalized anxiety disorder: (5) Cannabis use disorder, severe, dependence: Plan 38-year-old female admitted after an overdose on hydroxyzine with a history of major depressive disorder and borderline personality disorder. The patient would benefit from acute inpatient psychiatric hospitalization. Patient was agreeable to changes with medication regimen as well. 1. ?Engage patient in individual milieu and group therapy. 2.?? Recommend sober living treatment at the highest level of care to which the patient is willing to commit 3.???Continue Cymbalta 30mg daily with plan for increase while continuing zoloft 50mg to avoid SSRI discontinuation syndrome. Reduce abilify to 5mg x3 days then discontinue. Add seroquel 50mg at night to target PTSD and MDD symptoms. 4.?? TO-15 minute checks? 5.?? Will attempt to gather collateral information- Patient would benefit from DBT therapy. Involuntary Hold Information 2 96 Hour Hold: 96 Hour Involuntary Admission: No Attestations NPU 2 Medical Necessity Statement*: Inpatient hospitalization is medically necessary and deemed to ?be ?the clinically appropriate intervention ?at this time.? We will monitor/initiate medications and make changes as indicated.? ?The patient?s likely length of stay 4-6 days. Coding Level of Care Code Acute Code for [facility] Fwd Diagnoses Major depressive disorder, recurrent severe without psychotic features F33.2 Post-traumatic stress disorder, chronic F43.12 Borderline personality disorder F60.3 Generalized anxiety disorder F41.1 Cannabis use disorder, severe, dependence F12.20
[2023-10-18 14:00] VITALS: BP 110/74; PULSE 68; RESP 18; TEMP 36.7; O2SAT 97
[2023-10-18] MEDS: acetaminophen 325 mg Tablet 650 MG PO (14:48)
[2023-10-18] MEDS: ondansetron 2 mg/ML SDV 2 mL 4 MG IM (15:13)
--- NOTE | 2023-10-18 15:25 | PC.NURSE ---
STAFF HEARD PT VOMITING IN HER BATHROOM. THIS NURSE AND OTHER NURSES WENT AND CHECKED ON PATIENT. PT WAS NOTED TO BE DIAPHORETIC, HAD A HEADACHE, WITH LABORED BREATHING. PT WAS ON HANDS AND KNEES AND WAS ASSISTED UP BY STAFF AND ASSISTED TO THE BED. PT WAS COOPERATIVE. PHYSICIAN NOTIFIED AND ORDERED 4MG IM ZOFRAN ONE TIME. PT WAS COOPERATIVE WITH THIS MEDICATIONS. PT HAD RECEIVED TYLENOL 650MG PO PRN FOR HER HEADACHE. UNSURE IF PATIENT VOMITED UP THE MEDICATION. PT IS CURRENTLY LAYING IN BED RESTING WITH EYES CLOSED. RESPIRATIONS ARE EVEN AND NON-LABORED AT THIS TIME. MAINTENANCE CONTACTED TO LOWER PT ROOM TEMPERATURE.
[2023-10-18] MEDS: quetiapine 25 mg Tablet 50 MG PO ×2 (20:46→20:47)
[2023-10-18 21:26] VITALS: BP 106/70; PULSE 85; RESP 16; TEMP 37; O2SAT 96
[2023-10-19 06:00] VITALS: BP 101/69; PULSE 55; RESP 15; TEMP 36.8; O2SAT 96
[2023-10-19] MEDS: nicotine 4 mg lozenge MUCOUS MEM ×6 (06:48→17:28)
--- NOTE | 2023-10-19 07:39 | P.NPUPN_ITS ---
Subjective NPU 2 Subjective: Patient presented today reporting that she is feeling much better having reached her family and come to some understanding of where things will go when she leaves here. She reports that she feels ready to face the challenges outside of the hospital and reported she was slightly upset because she thought she would be able to leave for sure today. We discussed that the plans about where she was going did not come into view until later in the day and prior to that we were exploring the possibilities of other residential options. She denied any side effects to the medication and we agreed we would get things together such that she could leave fairly early in the morning. Mental Status Exam 2 MSE Comments: This is an overweight versus obese white female in hospital scrubs with limited grooming and adequate eye contact. No abnormal movements except for mild psychomotor retardation. Cooperative with exam in mild distress. Her speech was slightly decreased rate and volume. Her mood was described as optimistic but sad I will refill tomorrow. Her affect appeared less restricted in range and mood congruent. Her thought process was linear, logical, and goal-directed. Her thought content: Patient denied suicidal or homicidal ideation. There were no delusions reported or noted, she denied auditory or visual hallucinations and she did not appear to be responding to internal stimuli. Her attention and concentration appeared fair and her recent and remote memory were grossly intact but none were formally tested. She was alert and oriented x 3. Insight and judgment were limited but improving and her impulse control appeared poor. Vitals/I&O/Wt Last Vital Signs Temp 98.2 F 10/19/23 06:00 Pulse 55 L 10/19/23 06:00 Resp 15 10/19/23 06:00 BP 101/69 10/19/23 06:00 Pulse Ox 96 10/19/23 06:00 O2 Del Method Room Air 10/19/23 06:00 Data NPU 10/16/23 04:34 10/16/23 04:34 A&P Assessment and plan (1) Major depressive disorder, recurrent severe without psychotic features: (2) Post-traumatic stress disorder, chronic: (3) Borderline personality disorder: (4) Generalized anxiety disorder: (5) Cannabis use disorder, severe, dependence: Plan 38-year-old female admitted after an overdose on hydroxyzine with a history of major depressive disorder and borderline personality disorder. The patient would benefit from acute inpatient psychiatric hospitalization. Patient was agreeable to changes with medication regimen as well. 1. ?Engage patient in individual milieu and group therapy. 2.?? Recommend sober living treatment at the highest level of care to which the patient is willing to commit 3.???Continue Cymbalta 30mg daily with plan for increase while continuing zoloft 50mg to avoid SSRI discontinuation syndrome. Reduce abilify to 5mg x3 days then discontinue. Add seroquel 50mg at night to target PTSD and MDD symptoms. 4.?? TO-15 minute checks? 5.?? Will attempt to gather collateral information- Patient would benefit from DBT therapy. Involuntary Hold Information 2 96 Hour Hold: 96 Hour Involuntary Admission: No Attestations NPU 2 Medical Necessity Statement*: Inpatient hospitalization is medically necessary and deemed to ?be ?the clinically appropriate intervention ?at this time.? We will monitor/initiate medications and make changes as indicated.? ?The patient?s likely length of stay 1-3 days. Coding Level of Care Code Acute Code for [facility] Fwd Diagnoses Major depressive disorder, recurrent severe without psychotic features F33.2 Post-traumatic stress disorder, chronic F43.12 Borderline personality disorder F60.3 Generalized anxiety disorder F41.1 Cannabis use disorder, severe, dependence F12.20
[2023-10-19] MEDS: duloxetine 30 mg Capsule PO (08:57)
[2023-10-19] MEDS: ARIPiprazole 10 mg Tablet 5 MG PO (08:57)
[2023-10-19] MEDS: sertraline 50 mg Tablet PO (08:57)
--- NOTE | 2023-10-19 09:01 | PC.NURSE ---
During assessment, patient calm. Patient was eager to talke with Juliano about her discharge plan. Edgardo notified. Patient reports that her anxiety and depression have tappered off but are both still present. Patient denies SI, HI, AVH.
[2023-10-19] MEDS: OLANZapine 5 mg ODT PO (10:24)
--- NOTE | 2023-10-19 10:24 | PC.NURSE ---
Patient visibly anxious, face red, tearful, patient's fists are balled. Administered zyprexa 5mg ODT.
[2023-10-19] MEDS: hyDROXYzine 25 mg Capsule 50 MG PO (11:55)
[2023-10-19] MEDS: haloperidol 5 mg Tablet PO (11:55)
--- NOTE | 2023-10-19 11:57 | PC.NURSE ---
PATIENT VISIBLY UPSET, CRYING, SHAKING. THIS NURSE ADMINISTERED VISTARIL AND HALDOL TO PATIENT. PATIENT ANXIOUS/AGITATED
[2023-10-19 13:24] VITALS: BP 107/74; PULSE 56; RESP 14; TEMP 36.9; O2SAT 96
[2023-10-19 20:28] VITALS: BP 96/65; PULSE 63; RESP 16; O2SAT 94
[2023-10-19] MEDS: quetiapine 25 mg Tablet 50 MG PO ×2 (21:07)
[2023-10-20] MEDS: nicotine 4 mg lozenge MUCOUS MEM ×3 (05:52→10:44)
[2023-10-20 06:00] VITALS: BP 128/85; PULSE 90; RESP 18; O2SAT 98
[2023-10-20] MEDS: sertraline 50 mg Tablet PO (08:00)
[2023-10-20] MEDS: duloxetine 30 mg Capsule PO (08:00)
--- NOTE | 2023-10-20 08:13 | PC.NURSE ---
During morning assessment, patient denies SI, HI, AVH, and depression. Patient endorses feelings of anxiety caused by eagerness to be discharged from the unit. Patient cooperative.
[2023-10-20] MEDS: OLANZapine 5 mg ODT PO (08:50)
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
[2023-10-20] MEDS: haloperidol 5 mg Tablet PO (10:48)
[2023-10-20] MEDS: hyDROXYzine 25 mg Capsule 50 MG PO (10:48)
[2023-10-20 11:08] VITALS: BP 128/85; PULSE 90; RESP 18; O2SAT 98
== END 2023-10-20 11:35 | disposition home or self-care (01) | DRG 885 ==
LOC: ER 17:03 → ER IP 17:59 → ICU 23:56 → NP 10-16 19:24
PROVIDERS: Admitting Provider Internal Medicine; Emergency Provider Emergency Medicine; Family Provider Family Medicine; PCP Family Medicine; Visit Provider Psychiatry & Neurology Psychiatry
DX: F33.2 Major depressive disorder, recurrent severe without psychotic features (principal); F60.3 Borderline personality disorder; F41.1 Generalized anxiety disorder; F43.12 Post-traumatic stress disorder, chronic; F42.9 Obsessive-compulsive disorder, unspecified; Z81.8 Family history of other mental and behavioral disorders; F12.20 Cannabis dependence, uncomplicated; T43.592A Poisoning by other antipsychotics and neuroleptics, intentional self-harm, initial encounter; Y92.9 Unspecified place or not applicable
CPT/HCPCS: 36415; 80053; 80306; 80307; 81001; 81025; 83735; 84443; 85025; 93005; 96372; 96374; 96376; 97150; 97165; 99285; J2405; J3490; J7030

== ENCOUNTER 2024-03-15 15:30 | Emergency (ER) | payer OTHER, SELFPAY ==
[2024-03-15 16:32] LABS: Basophils # 0.1 10^3/uL (0.0-0.1); Eosinophils # 0.3 10^3/uL (0.0-0.8); Eosinophils % 2.7 %; Hematocrit 38.7 % (36-47); Lymphocytes # 1.5 10^3/uL (0.8-4.8); Mean Corpuscular HGB Conc 33.3 g/dL (30-55); Mean Corpuscular Hemoglobin 28.5 pg (27-33); Mean Corpuscular Volume 85.6 fl (85-98); Monocytes # 0.8 10^3/uL (0.2-0.9); Neutrophils # 7.67 10^3/uL (1.8-7.7); Nucleated Red Blood Cells % 0 %; Platelet Count 214 10^3/cmm (157-399); Red Blood Count 4.52 10^6/uL (3.85-5.65); Red Cell Distribution Width 13.3 % (12.1-15.1); White Blood Count 10.36 10^3/uL (3.29-11.43)
[2024-03-15 16:40] VITALS: BP 124/84; PULSE 56; RESP 16; TEMP 36.6; O2SAT 98; BMI 32.1
[2024-03-15 16:51] LABS: Alanine Aminotransferase 19 U/L (0-33); Albumin Level 4.4 g/dL (3.5-5.2); Alkaline Phosphatase 82 U/L (35-105); Anion Gap 11.1 (5-19); Aspartate Amino Transferase 17 U/L (0-32); Blood Urea Nitrogen 10 mg/dL (6-20); Calcium 8.6 mg/dL (8.5-10.5); Carbon Dioxide 28 mmol/L (22-29); Chloride 103 mmol/L (98-107); Globulin 1.3 g/dL (1.3-4.6); Glomerular Filtration Rate 80.7 mL/min (90-130); Glucose 93 mg/dL (65-115); Osmolality Calculated 285 mOsm/kg (285-295); Potassium 4.1 mmol/L (3.5-5.1); Sodium 138 mmol/L (136-145); Total Bilirubin 0.2 mg/dL (0.15-1.2); Total Protein 5.7 g/dL (6.6-8.7)
[2024-03-15 16:53] LABS: HCG, Serum Qual Negative (Negative)
[2024-03-15 17:17] LABS: Bilirubin Urine Negative (Negative); Blood Urine Negative (Negative); Glucose Urine UA Negative (Normal); Ketones Urine Negative (Negative); Leukocyte Esterase Urine 1+ (Negative); Nitrate Urine Negative (Negative); Protein Urine Negative (Negative); Specific Gravity, Urine 1.017 (1.005-1.030); Urine Appearance Clear (CLEAR); Urine Color Yellow (Yellow); Urobilinogen Urine 0.2 mg/dL (Negative); pH Urine 5.5 (5-7)
[2024-03-15 17:23] LABS: Add Urine Microscopic? YES; Bacteria Urine 1+ /hpf; Hyaline Casts Urine 0-4 /lpf; RBC Urine 0-2 /hpf (0-2); Squamous Epithelial Cell Urine 0-5 /hpf (0-5); WBC Urine 0-5 /hpf (0-5)
--- NOTE | 2024-03-15 18:15 | XRR_ITS ---
PROCEDURE INFORMATION: Exam: XR Abdomen Exam date and time: 03/15/2024 7:12 PM Age: 39 years old Clinical indication: Abdominal pain; Prior surgery; Surgery date: 6+ months; Surgery type: Tubal; Patient HX: Llq pain; Nausea; Constipation TECHNIQUE: Imaging protocol: Radiologic exam of the abdomen. Views: Frontal supine view of the abdomen. 1 View. COMPARISON: No relevant prior studies available. FINDINGS: Gastrointestinal tract: Moderate colonic stool burden. No bowel dilation. Bones/joints: Unremarkable. XR/XR KUB portable [id number] IMPRESSION: No acute findings. Moderate colonic stool burden.
--- NOTE | 2024-03-15 18:15 | W.ED.ABDPA2 ---
HPI - Abdominal Pain General: Chief Complaint: Abdominal Pain Stated Complaint: abd pain, constipation Time Seen by Provider: 03/15/24 18:07 History of Present Illness: 39-year-old female with 3 years of abdominal pain. He says she has had the pain on and off. It has been constant since yesterday. It got worse today. She has been nauseated. No vomiting. No diarrhea. She says she does have a history of constipation. No dysuria or hematuria. Her only belly surgery is a tubal ligation in the past she says 12 years ago. No recent vaginal discharge or bleeding. Related Data Date of Last Menstrual Period: 03/11/24 Previous Rx's Medication Instructions Recorded hydroxyzine pamoate 25 mg capsule 50 mg (2 x 25 mg) PO Q6H PRN 10/20/23 Anxiety 30 days #120 caps duloxetine 60 mg capsule,delayed 120 mg (2 x 60 mg) PO DAILY 30 12/24/23 release days #60 caps trazodone 50 mg tablet 100 mg (2 x 50 mg) PO .HS PRN 12/24/23 insomnia #60 tabs promethazine 25 mg tablet 25 mg PO TID PRN nausea and 01/16/24 vomiting #30 tabs rizatriptan 10 mg tablet (Maxalt) See Rx Instructions PO .COMPLEX 01/16/24 #14 tabs clomipramine 50 mg capsule 100 mg (2 x 50 mg) PO .HS #60 caps 02/25/24 haloperidol 2 mg tablet 2 mg PO BID #60 tabs 02/25/24 polyethylene glycol 3350 17 17 g PO BID #850 grams 03/15/24 gram/dose oral powder (Miralax) sulfamethoxazole 800 1 tab PO BID 5 days #10 tabs 03/15/24 mg-trimethoprim 160 mg tablet (Bactrim DS) Allergies Allergy/AdvReac Type Severity Reaction Status Date / Time clomipramine AdvReac Intermediate Tiredness Verified 03/15/24 16:47 & constipation. [facility] ED PFS: Medical History Depression Psychiatric care Social History Smoking and tobacco/nicotine status: never used tobacco/nicotine Female Reproductive History: Date of last menstrual period: 03/11/24 Physical Exam Const: COMMON NORMALS: no acute distress GENERAL APPEARANCE: cooperative; not ill appearing and not frail appearing HENMT: COMMON NORMALS: normocephalic, atraumatic and Normal external nose present HEAD & SCALP: normocephalic and atraumatic FACE & SINUS: normal facial exam and face symmetric NOSE: Normal external nose present Eye: COMMON NORMALS: Equal, round and reactive pupils present and EOMs intact bilaterally PUPIL: Yes Equal, round and reactive pupils present Neck/C-Spine: GENERAL: Yes trachea midline Chest: CHEST: Yes Symmetrical chest wall rise Resp: COMMON NORMALS: normal respiratory effort, No retractions, No use of accessory muscles and clear to auscultation bilaterally AUSCULTATION: clear to auscultation bilaterally Cardio: COMMON NORMALS: regular rate and regular rhythm RATE: regular rate RHYTHM: regular rhythm GI: COMMON NORMALS: Normal to inspection, nondistended, normoactive bowel sounds present PALPATION: Yes Tenderness to palpation present (GI) Details: LLQ Extremity: COMMON NORMALS: no pedal edema Neuro: ESSENCE COMA SCALE: document GCS findings Murray coma scale eye opening: Spontaneous Murray coma scale verbal response: Orientated Murray coma scale motor response: Obey commands Essence coma scale total score: 15 SENSORY EXAM: Yes extremities (intact) Psych: COMMON NORMALS: speech normal SPEECH: Yes normal speech Skin: COMMON NORMALS: no rashes or lesions noted GENERAL SKIN EXAM: no rashes or lesions noted Course Vital Signs: Vital signs: Vital Signs Temperature 97.9 F 03/15/24 16:40 Pulse Rate 55 L 03/15/24 20:02 Respiratory Rate 16 03/15/24 19:50 Blood Pressure 130/91 03/15/24 20:02 Pulse Oximetry 99 03/15/24 20:02 Oxygen Delivery Me thod Room Air 03/15/24 20:00 MDM - Abdominal Pain Medical Decision Making Patient has significant stool burden on KUB without obstructive pattern. No calcifications noted. Laboratory is normal, except that she does have a urinary tract infection that is mild. She be placed on antibiotics. Outpatient follow-up Lab Data 03/15/24 16:26 03/15/24 16:26 Labs/Radiology: Radiology Impressions KUB X-Ray 03/15/24 18:15 IMPRESSION: No acute findings. Moderate colonic stool burden. Laboratory Results WBC 10.36 10^3/uL (3.29-11.43) 03/15/24 16: RBC 4.52 10^6/uL (3.85-5.65) 03/15/24 16:26 Hgb 12.90 g/dL (11.27-16.99) 03/15/24 16:26 Hct 38.7 % (36-47) 03/15/24 16:26 MCV 85.6 fl (85-98) 03/15/24 16:26 MCH 28.5 pg (27-33) 03/15/24 16: MCHC 33.3 g/dL (30-55) 03/15/24 16: RDW 13.3 % (12.1-15.1) 03/15/24 16: Plt Count 214 10^3/cmm (157-399) 03/15/24 16:26 MPV 10.0 fL (7.4-10.4) 03/15/24 16:26 Neut % (Auto) 74.0 % 03/15/24 16:26 Lymph % (Auto) 14.0 % 03/15/24 16:26 [place] % (Auto) 8.0 % 03/15/24 16:26 Eos % (Auto) 2.7 % 03/15/24 16:26 Baso % (Auto) 1.0 % 03/15/24 16:26 Neut # (Auto) 7.67 10^3/uL (1.8-7.7) 03/15/24 16:26 Lymph # (Auto) 1.5 10^3/uL (0.8-4.8) 03/15/24 16:26 [place] # (Auto) 0.8 10^3/uL (0.2-0.9) 03/15/24 16:26 Eos # (Auto) 0.3 10^3/uL (0.0-0.8) 03/15/24 16:26 Baso # (Auto) 0.1 10^3/uL (0.0-0.1) 03/15/24 16:26 Nucleated RBC % (auto) 0 % 03/15/24 16: Nucleated RBCs # 0.0 /100WBC 03/15/24 16:26 Sodium 138 mmol/L (136-145) 03/15/24 16:26 Potassium 4.1 mmol/L (3.5-5.1) 03/15/24 16:26 Chloride 103 mmol/L (98-107) 03/15/24 16:26 Carbon Dioxide 28 mmol/L (22-29) 03/15/24 16:26 Anion Gap 11.1 (5-19) 03/15/24 16:26 BUN 10 mg/dL (6-20) 03/15/24 16:26 Creatinine 0.8 mg/dL (0.5-0.9) 03/15/24 16:26 GFR Calculation 80.7 mL/min (90-130) L 03/15/24 16:26 Glucose 93 mg/dL (65-115) 03/15/24 16:26 Calculated Osmolality 285 mOsm/kg (285-295) 03/15/24 16:26 Calcium 8.6 mg/dL (8.5-10.5) 03/15/24 16:26 Total Bilirubin 0.2 mg/dL (0.15-1.2) 03/15/24 16:26 AST 17 U/L (0-32) 03/15/24 16:26 ALT 19 U/L (0-33) 03/15/24 16:26 Alkaline Phosphatase 82 U/L (35-105) 03/15/24 16:26 Total Protein 5.7 g/dL (6.6-8.7) L 03/15/24 16:26 Albumin 4.4 g/dL (3.5-5.2) 03/15/24 16:26 Globulin 1.3 g/dL (1.3-4.6) 03/15/24 16:26 HCG, Qual Negative (Negative) 03/15/24 16:26 Urine Color Yellow (Yellow) 03/15/24 17:08 Urine Appearance Clear (CLEAR) 03/15/24 17:08 Urine pH 5.5 (5-7) 03/15/24 17:08 Ur Specific [place] 1.017 (1.005-1.030) 03/15/24 17:08 Urine Protein Negative (Negative) 03/15/24 17:08 Urine Glucose (UA) Negative (Normal) 03/15/24 17:08 Urine Ketones Negative (Negative) 03/15/24 17:08 Urine Blood Negative (Negative) 03/15/24 17:08 Urine Nitrate Negative (Negative) 03/15/24 17:08 Urine Bilirubin Negative (Negative) 03/15/24 17:08 Urine Urobilinogen 0.2 mg/dL (Negative) 03/15/24 17:08 Ur Leukocyte Esterase 1+ (Negative) A 03/15/24 17:08 Urine RBC 0-2 /hpf (0-2) 03/15/24 17:08 Urine WBC 0-5 /hpf (0-5) 03/15/24 17:08 Ur Squamous Epith Cells 0-5 /hpf (0-5) 03/15/24 17:08 Amorphous Sediment Not Reportable 03/15/24 17:08 Urine Bacteria 1+ /hpf (NONE) H 03/15/24 17:08 Hyaline Casts 0-4 /lpf H 03/15/24 17:08 All radiology interpretation(s) finalized by discharge Discharge Plan Discharge Patient Disposition: Home Clinical Impression: Constipation, UTI (urinary tract infection) Condition: Stable Prescriptions: New sulfamethoxazole-trimethoprim [Bactrim DS] 800-160 mg tablet 1 tab PO BID 5 Days Qty: 10 0RF polyethylene glycol 3350 [Miralax] 17 gram/dose powder 17 g PO BID Qty: 850 0RF No Action duloxetine 60 mg capsule,delayed release(DR/EC) 120 mg PO DAILY 30 Days Qty: 60 2RF trazodone 50 mg tablet 100 mg PO .HS PRN (Reason: insomnia) Qty: 60 2RF rizatriptan [Maxalt] 10 mg tablet See Rx Instructions PO .COMPLEX Qty: 14 4RF Rx Instructions: take 1 tab at onset of headache; if no relief may repeat 1 tab after at least 2 hrs; max = 2 tabs/24 hr PO promethazine 25 mg tablet 25 mg PO TID PRN (Reason: nausea and vomiting) Qty: 30 2RF clomipramine 50 mg capsule 100 mg PO .HS Qty: 60 2RF haloperidol 2 mg tablet 2 mg PO BID Qty: 60 2RF hydroxyzine pamoate 25 mg Capsule 50 mg PO Q6H PRN (Reason: Anxiety) 30 Days Qty: 120 1RF Discharge Orders: Discharge ED (Routine); Ordered 03/15/24 Ordered By: Julio Robertson Referrals: Robel Whitney MD [Primary Care Provider] - Patient Instructions: Constipation (ED), Urinary Tract Infection in Women (ED), Opioid Safety, Pain Management Activity Restrictions/Additional Instructions: Return for fever greater than 100, vomiting liquids or medications, significant amounts of blood in the stool, other concerning symptoms. Call your doctor on Sunday for follow-up Coding Level of Care Code ED [employer] for Donya Schuster
[2024-03-15 18:27] VITALS: BP 122/72; PULSE 55; O2SAT 100
[2024-03-15 19:50] VITALS: RESP 16
[2024-03-15] MEDS: ondansetron 4 MG Tablet PO (19:50)
[2024-03-15] MEDS: oxyCODONE-APAP 5-325 mg Tablet 2 TAB PO (19:50)
[2024-03-15] MEDS: ketorolac 10 mg Tablet PO (19:50)
[2024-03-15] MEDS: magnesium citrate Btl 296 mL PO (19:51)
[2024-03-15 20:00] VITALS: BP 130/91; PULSE 55; O2SAT 99
[2024-03-15 20:02] VITALS: BP 130/91; PULSE 55; O2SAT 99
== END 2024-03-15 20:02 | disposition home or self-care (01) ==
PROVIDERS: Family Medicine; Emergency Provider Emergency Medicine; Family Provider Family Medicine; PCP Family Medicine
DX: K59.00 Constipation, unspecified (principal); N39.0 Urinary tract infection, site not specified
CPT/HCPCS: 36415; 74018; 80053; 81001; 84703; 85025; 99284; Q0162